=== PATIENT | female | born 1980 | race African-American/Black ===

== ENCOUNTER 2016-08-16 17:30 | Emergency (ER) | payer OTHER ==
--- NOTE | ~2016-08-16 | CR230 ---
[facility] A Service [facility] RADIOLOGY TEXT RESULTS PATIENT: JUDIT MENDENHALL LOCATION: [facility] : [birth year] UNIT #: [id number] AGE: [address]: RICARDO RODRIGUEZ APRN SEX: F ORDER DR: [id number] [facility] [address] [place], [place] [address] [id number] E MR#: [id number] Acc #: [id number] NAME: JUDIT MENDENHALL. : 1980 SEX: F STUDY DATE/TIME: 08/16/2016 20:08 UNIT: [facility] ROOM: STUDY DESCRIPTION: CR Shoulder Min 2 View Rt Attending Physician: Ricardo Rodriguez Aprn Ordering Physician: Ricardo Rodriguez Aprn Primary Care Physician: Lacy Norris M.D. MEDICAL IMAGING REPORT This report is preliminary unless electronic signature is present EXAM Right shoulder series dated 08/16/2016 COMPARISON Single view chest dated 06/26/2013. HISTORY Pain and swelling with tingling in the right shoulder for 3 days. Started after lifting heavy objects 3 days ago. FINDINGS 3 views of the right shoulder were obtained. AP view with internal and external rotation of the shoulder girdle shows satisfactory relationship of the humeral head and glenoid fossa. The joint space is normal. There is no identifiable fracture or dislocation or bony destructive process about the shoulder girdle anatomy. The acromioclavicular joint is normal. There is no radiopaque foreign body in the region. IMPRESSION Normal shoulder. Dictated by... Carlos Gresham M.D. THIS IS AN ELECTRONICALLY VERIFIED REPORT Carlos Gresham M.D. at 08/18/2016 8:41 PM CPR/rnr [facility] A Service [facility] RADIOLOGY TEXT RESULTS PATIENT: JUDIT MENDENHALL LOCATION: [facility] : 80 UNIT #: [id number] AGE: [address]: RICARDO RODRIGUEZ APRN SEX: F ORDER DR: TD: 08/17/2016 00:38 JOB #: [id number] MEDICAL IMAGING REPORT Page 1 of 1 COPY
[~2016-08-16 17:30] MED LIST: ALBUTEROL17 GM INH; NAPROSYN250 M1 PO; PULMICORT180 MCG/A1 INH; PULMICORT200 MCG/AE INH; SINGULAIR PO
[2016-08-16 19:26] LABS: URINE SOURCE CLEAN CATCH
[2016-08-16 19:35] LABS: URINE APPEARANCE CLEAR; URINE BILIRUBIN NEG (NEG); URINE BLOOD 2+ (NEG); URINE COLOR YELLOW; URINE GLUCOSE NEG (NEG); URINE KETONE TRACE (NEG); URINE LEUKOCYTE ESTERASE 1+ (NEG); URINE NITRATE POS (NEG); URINE PH 5.5 (5-8); URINE PROTEIN NEG (NEG); URINE SPECIFIC GRAVITY 1.026 (1.003-1.035)
[2016-08-16 19:37] LABS: CULTURE INDICATED? YES; URBCS1 AUWI 0-2 /[HPF] (0-2); URINE BACTERIA AUWI 4+ (NEGATIVE); URINE SQUAMOUS EPITHELIAL CELL NONE SEEN /[HPF]; UWBCS1 AUWI 25-50 (0-5)
== END 2016-08-16 21:31 | disposition home or self-care (01) ==
LOC: CED 17:30 → CFTX 17:30
PROVIDERS: Physician Assistant Medical
DX: S46.911A Strain of unspecified muscle, fascia and tendon at shoulder and upper arm level, right arm, initial encounter (principal); J45.909 Unspecified asthma, uncomplicated; I50.9 Heart failure, unspecified; Z98.51 Tubal ligation status; Z98.890 Other specified postprocedural states; X50.9XXA Other and unspecified overexertion or strenuous movements or postures, initial encounter; Y92.69 Other specified industrial and construction area as the place of occurrence of the external cause; Y93.89 Activity, other specified; Y99.0 Civilian activity done for income or pay
CPT/HCPCS: 73030; 81003; 84703; 87086; 87088; 87186; 99284